=== PATIENT | male | born 1945 | race African-American/Black ===

== ENCOUNTER 2024-01-12 01:03 | Emergency (ER) | payer MEDICARE, OTHER ==
[~2024-01-12 01:03] MED LIST: HYDR25TA; VALS40TA4; [UNRECOGNIZED DRUG - OTHER]
[2024-01-12 01:41] LABS: BASOPHILS % 0.6 % (0.0-2.0); EOSINOPHILS % 2.2 % (0.0-5.0); HEMATOCRIT. 37.2 % (42.0-52.0); LYMPHOCYTES % 18.1 % (20.0-50.0); MEAN CORPUSCULAR HEMOGLOBIN 26.8 pg (28.0-32.0); MEAN CORPUSCULAR HGB CONC 32.2 g/dL (31.0-37.0); MEAN CORPUSCULAR VOLUME 83.2 fL (80.0-94.0); MEAN PLATELET VOLUME 8.5 fl (7.4-10.4); MONOCYTES % 11.1 % (2.0-8.0); PLATELET 115 x1000/uL (130-400); RED BLOOD CELL COUNT 4.46 mill/uL (4.7-6.1); RED CELL DISTRIBUTION WIDTH 14.1 % (11.6-14.6)
[2024-01-12 01:45] LABS: CHLORIDE 105 mEq/L (98-107); POTASSIUM 3.1 mEq/L (3.5-5.1); SODIUM 139 mEq/L (136-145)
[2024-01-12 01:46] LABS: CARBON DIOXIDE 28 mEq/L (21-32)
[2024-01-12 01:47] LABS: CALCIUM 9.2 mg/dL (8.7-10.4)
[2024-01-12 01:51] LABS: CREATININE 0.8 mg/dL (0.6-1.3); GLUCOSE 126 mg/dL (70-105); UREA NITROGEN BLOOD 15 mg/dL (9-23)
[2024-01-12 01:52] LABS: TROPONIN I HIGH SENSITIVITY 8 ng/L (3.0-53)
[2024-01-12 01:53] LABS: ETHANOL BLOOD < 10 mg/dL (<10)
[2024-01-12 02:10] VITALS: TEMP 98.2
[2024-01-12] MEDS: POTASSIUM CHLORIDE 20MEQ/PACKET PO NR (02:40)
[2024-01-12] MEDS ORDERED: POTA-204 MT (04:08)
[2024-01-12 04:25] VITALS: BP 117/75; PULSE 63; RESP 13
== END 2024-01-12 04:37 | disposition home or self-care (01) ==
LOC: ER 01:03
DX: E87.6 Hypokalemia (principal); I10 Essential (primary) hypertension; Z88.5 Allergy status to narcotic agent; Z85.46 Personal history of malignant neoplasm of prostate
CPT/HCPCS: 36415; 71045; 80048; 80320; 83880; 84484; 85025; 93005; 99285; G0480

== ENCOUNTER 2024-09-18 18:00 | Emergency (ER) | payer SELFPAY ==
[~2024-09-18] VITALS: Ht 185.4 cm; Wt 104.0 kg
[~2024-09-18 18:00] MED LIST changes: +POTA-204 MT
[2024-09-18 18:01] VITALS: BP 165/82; PULSE 66; RESP 16; TEMP 36.7; O2SAT 95
[2024-09-18 19:02] LABS: *AMPHETAMINES SCREEN URINE NEGATIVE (NEGATIVE); *BARBITURATES SCREEN URINE NEGATIVE (NEGATIVE); *BENZODIAZEPINES SCREEN URINE NEGATIVE (NEGATIVE); *COCAINE SCREEN URINE NEGATIVE (NEGATIVE); CANNABINOID URINE SCREEN PRESUMPTIVE POSITIVE (NEGATIVE); METHADONE URINE SCREEN NEGATIVE (NEGATIVE); OPIATES URINE SCREEN NEGATIVE (NEGATIVE); PHENCYCLIDINE URINE SCREEN NEGATIVE (NEGATIVE)
[2024-09-18 19:03] LABS: ECSTASY MDMA SCREEN URINE NEGATIVE (NEGATIVE)
== END 2024-09-18 21:26 | disposition home or self-care (01) ==
LOC: ER 18:00
DX: C61 Malignant neoplasm of prostate (principal); G89.3 Neoplasm related pain (acute) (chronic); T40.715A Adverse effect of cannabis, initial encounter; I10 Essential (primary) hypertension; Z79.899 Other long term (current) drug therapy; Z88.5 Allergy status to narcotic agent; Y92.89 Other specified places as the place of occurrence of the external cause
CPT/HCPCS: 80305; 99283